=== PATIENT | female | born 1990 | race Caucasian/White ===

== ENCOUNTER 2017-07-18 00:29 | Emergency (ER) | payer BC, OTHER ==
[2017-07-18 00:43] VITALS: BP 126/93; PULSE 78; TEMP 97.9; BMI 40.2
--- NOTE | 2017-07-18 01:03 | PDOC ---
History of Present Illness <Sheba Devries Patsy - Last Filed: 07/18/17 01:03> - History of Present Illness Initial Comments: 07/18/17 01:08 Patient is a 27 F, with past surgical hx of (1 yr ago), who presents to the ED for head/neck pain s/p 4 days ago. Patient states that she fell down 4 stairs on Sunday. She states she hit her head and sustained a headache. She took Excedrin for her headache. Patient states that her headache persisted as well as her neck pain which prompted her to visit the ER. She is also currently complaining of dizziness and nausea, as well as left leg, ankle, and backside muscle pain. She reports that it hurts more when she lies down as opposed to sitting up. LMP was on Sunday. Denies LOC. PCP: Nahun Salinas Allergies: batrim <Nelly Quan - Last Filed: 07/18/17 01:18> - General Chief Complaint: Pain Stated Complaint: HEAD PAIN S/P FALL Time Seen by Provider: 07/18/17 01:02 Past History - Past Medical History Anemia: No Asthma: No Cancer: No Cardiac Disorders: No CVA: No COPD: No CHF: No DVT: No Dementia: No - Suicide/Smoking/Psychosocial Hx Smoking History: Never smoked Have you smoked in the past 12 months: No Information on smoking cessation initiated: No Hx Alcohol Use: No Drug/Substance Use Hx: No Substance Use Type: None <Sheba Devries Patsy - Last Filed: 07/18/17 01:03> <Nelly Quan - Last Filed: 07/18/17 01:18> - Past Medical History Allergies/Adverse Reactions: Allergies Allergy/AdvReac Type Severity Reaction Status Date / Time sulfamethoxazole Allergy Verified 07/18/17 00:40 [From Bactrim] trimethoprim [From Bactrim] Allergy Verified 07/18/17 00:40 Home Medications: Ambulatory Orders Norgestimate-Ethinyl Estradiol [Trinessa Tablet] 1 each PO DAILY 11/11/15 Review of Systems - Review of Systems Comments:: 07/18/17 01:13 CONSTITUTIONAL: Absent: fever, no chills, no fatigue EYES: Absent: visual changes ENT: Absent: ear pain, no sore throat CARDIOVASCULAR: Absent: chest pain, no palpitations RESPIRATORY: Absent: cough, no SOB GI: Present: nausea Absent: abdominal pain, no vomiting, no constipation, no diarrhea GENITOURINARY: Absent: dysuria, no frequency, no hematuria MUSCULOSKELETAL: Present: left left, bottom, ankle, backside muscle pain. SKIN: Absent: rash NEURO: Present: headache, dizziness <Nelly Quan - Last Filed: 07/18/17 01:18> *Physical Exam - Vital Signs Last Vital Signs Temp Pulse Resp BP Pulse Ox 97.9 F 78 20 126/93 99 07/18/17 00:40 07/18/17 00:40 07/18/17 00:40 07/18/17 00:40 07/18/17 00:40 <Sheba Devries - Last Filed: 07/18/17 01:03> - Vital Signs Last Vital Signs Temp Pulse Resp BP Pulse Ox 97.9 F 78 20 126/93 99 07/18/17 00:40 07/18/17 00:40 07/18/17 00:40 07/18/17 00:40 07/18/17 00:40 - Physical Exam Comments: 07/18/17 01:16 GENERAL: Well-appearing, well-nourished. No apparent distress. HEENT: Normocephalic, atraumatic. PERRL, EOM intact. CARDIOVASCULAR: Normal S1, S2. Regular rate and rhythm. PULMONARY: Clear to auscultation bilaterally. ABDOMEN: Soft, non-distended, non-tender. EXTREMITIES: Normal ROM in all four extremities. No gross deformities. SKIN: Warm, dry. No rash NEUROLOGICAL: No focal neurological deficits. <Nelly Quan - Last Filed: 07/18/17 01:18> *DC/Admit/Observation/Transfer <Sheba Devries - Last Filed: 07/18/17 01:03> - Attestations Scribe Attestion: 07/18/17 01:18 Documentation prepared by Nelly Quna, acting as medical van driver for Sheba Devries MD. <Nelly Quan - Last Filed: 07/18/17 01:18> - Referrals Referrals: Nahun Kauffman MD [Primary Care Provider] - - Patient Instructions - Post Discharge Activity
--- NOTE | 2017-07-18 03:51 | PDOC ---
*Physical Exam - Vital Signs Last Vital Signs Temp Pulse Resp BP Pulse Ox 97.9 F 78 20 126/93 99 07/18/17 00:40 07/18/17 00:40 07/18/17 00:40 07/18/17 00:40 07/18/17 00:40 ED Treatment Course - ADDITIONAL ORDERS Additional order review: Laboratory Results 07/18/17 01:20 Urine HCG, Qual Negative *DC/Admit/Observation/Transfer Diagnosis at time of Disposition: Neck pain, Closed head injury - Discharge Dispostion Disposition: HOME Condition at time of disposition: Stable Admit: No - Referrals Referrals: Nahun Kauffman MD [Primary Care Provider] - - Patient Instructions Printed Discharge Instructions: DI for Closed Head Injury, DI for Neck Sprain Additional Instructions: take motrin or Tylenol as needed for pain. Follow up with your doctor as needed. - Post Discharge Activity Forms/Work/School Notes: Back to Work
== END 2017-07-18 04:02 | disposition home or self-care (01) ==
LOC: JER 00:29
DX: S09.90XA Unspecified injury of head, initial encounter (principal); M54.2 Cervicalgia; W10.9XXA Fall (on) (from) unspecified stairs and steps, initial encounter; Y93.89 Activity, other specified; Y92.9 Unspecified place or not applicable
CPT/HCPCS: 70450-TC; 72125-TC; 84703; 99282-25